=== PATIENT | male | born 1955 | race Caucasian/White ===

== ENCOUNTER 2020-03-20 09:20 | Inpatient (IN) ==
--- OUTSIDE RECORDS SUMMARY | 2020-03-20 09:22 | External Medical Summary | Continuity of Care Document ---
:1955 Author Name Jabier Martino Address Unavailable Unavailable , Care Team Providers Name Role Phone Jerod Herrera PA-C Unavailable [email or web address] [email or web address]CH[place], R Unavailable Unavailable Unavailable Unavailable Unavailable Problems Left ventricular hypertrophy (429.3) (I51.7) Depression (311) (F32.9) Epistaxis (784.7) (R04.0) Chest pain (786.50) (R07.9) Shortness of breath (786.05) (R06.02) Hyperlipidemia (272.4) (E78.5) Hypertensive heart disease (402.90) (I11.9) Hypertension (401.9) (I10) Allergies and Adverse Reactions No Known Drug Allergies (Allergy) Medications Lisinopril 40 MG Oral Tablet; TAKE ONE TABLET BY MOUTH ONCE DAILY DO Reinaldo Bill Start: 30-Nov-2014 Quantity: 90 Refills: 1 Aspirin 81 MG TABS; TAKE 1 TABLET DAILY. Refills: 0 Fish Oil 300 MG CAPS; TAKE 1 CAPSULE Daily Refills: 0 Atorvastatin Calcium 40 MG Oral Tablet; Take one table t once daily DO Reinaldo Bill Start: 11-Jul-2013 Quantity: 90 Refills: 1 Carvedilol 12.5 MG Oral Tablet; TAKE ONE TABLET BY SHAAN TH TWICE DAILY DO Reinaldo Bill Start: 30-Nov-2014 Quantity: 180 Refills: 1 hydroCHLOROthiazide 25 MG Oral Tablet; TAKE 1 TABLET D AILY. DO Reinaldo Bill Start: 12-Apr-2015 Quantity: 90 Refills: 3 Klor-Con M20 20 MEQ Oral Tablet Extended Release; TAKE 1 TABLET DAILY. NELLY Herrera Quantity: 90 Refills: 3 Procedures Procedures not documented Immunizations Immunizations not documented Family History Father Family history of Acute Myocardial Infarction (V17.3) Status : Active Social History - Smoking Status Never smoked tobacco Plan of Treatment Planned Observations Planned Goals not documented Results No Known Results Results not documented
--- OUTSIDE RECORDS SUMMARY | 2020-03-20 09:22 | External Medical Summary | Continuity of Care Document ---
:1955 Author Name Jabier Martino Address Unavailable Unavailable , Care Team Providers Name Role Phone Jerod Herrera PA-C Unavailable [email or web address] [place] Unavailable Unavailable Unavailable Unavailable Unavailable Problems Hypertension (401.9) (I10) Depression (311) (F32.9) Left ventricular hypertrophy (429.3) (I51.7) Hypertensive heart disease (402.90) (I11.9) Hyperlipidemia (272.4) (E78.5) Shortness of breath (786.05) (R06.02) Chest pain (786.50) (R07.9) Epistaxis (784.7) (R04.0) Allergies and Adverse Reactions No Known Drug Allergies (Allergy) Medications Lisinopril 40 MG Oral Tablet; TAKE ONE TABLET BY MOUTH ONCE DAILY DO Reinaldo Bill Start: 30-Nov-2014 Quantity: 90 Refills: 1 Aspirin 81 MG TABS; TAKE 1 TABLET DAILY. Refills: 0 Fish Oil 300 MG CAPS; TAKE 1 CAPSULE Daily Refills: 0 Klor-Con M20 20 MEQ Oral Tablet Extended Release; TAKE 1 TABLET DAILY. NELLY Herrera Quantity: 90 Refills: 3 hydroCHLOROthiazide 25 MG Oral Tablet; TAKE 1 TABLET D AILY. DO Reinaldo Bill Start: 12-Apr-2015 Quantity: 90 Refills: 3 Carvedilol 12.5 MG Oral Tablet; TAKE ONE TABLET BY SHAAN TH TWICE DAILY DO Reinaldo Bill Start: 30-Nov-2014 Quantity: 180 Refills: 1 Atorvastatin Calcium 40 MG Oral Tablet; Take one table t once daily DO Reinaldo Bill Start: 11-Jul-2013 Quantity: 90 Refills: 1 Procedures Procedures not documented Immunizations Immunizations not documented Family History Father Family history of Acute Myocardial Infarction (V17.3) Status : Active Social History - Smoking Status Never smoked tobacco Plan of Treatment Planned Observations Planned Goals not documented Results No Known Results Results not documented
[2020-03-20] MEDS ORDERED: ALBUTEROL HFA 8 GM INHALER INH ONE (09:55)
[2020-03-20] MEDS ORDERED: DEXAMETHASONE **PF** INJ 10 MG/ML VIAL IV ONE (09:55)
[2020-03-20] MEDS ORDERED: guaiFENesin 600 MG TABCR PO STA (09:55)
--- NOTE | 2020-03-20 10:06 | Emergency Department Note ---
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 The patient reports associated generalized weakness but denies any fevers, chills, nausea, vomiting, diarrhea. He reports he has been without insurance for the past year and has not been taking his blood pressure medicine but cannot remember the names. The patient does report his symptoms do become worse with exertion where he feels increased shortness of breath and chest tightness. This happened today when he was at work just prior to arrival. He does not have any active chest pain at this time. On arrival the patient is in no acute distress, afebrile with elevated blood pressure of 210/100s and vital signs otherwise stable. Eventually developed mild hypoxia with O2 saturation 88% on RA. On exam he has a scant intermittent wheeze but is otherwise clear. EKG demonstrates LVH with repolarization abnormality with lateral T wave inversions that are new compared to 2013. There is no overt ST elevation or depression. WBC, H/H and platelets within normal limits. Chemistry without acidosis. Bilirubin 1.9, nonspecific. Otherwise, electrolytes and LFTs unremarkable. Troponin 0.017 within normal limits. BNP slightly elevated at 1300 prior for comparison. 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 For this, the patient was given guaifenesin as well as dose of dexamethasone and albuterol inhaler. However, suspect the patient's symptoms can largely be attributed to his uncontrolled hypertension since he has been off his medications. However the patient's report of exertional chest tightness and shortness of breath raises suspicion for possible underlying unstable angina. Reasonable as, reasonable to admit the patient for further cardiac evaluation and blood pressure control. He is agreeable with this plan. Case discussed with ADOLFO Tracy PAC, with ADOLFO Villa hospitalist. The patient was given additional dose of hydralazine to help with blood pressure control in addition to Lasix given his elevated BNP and evidence of venous congestion on chest x-ray. Triage Nursing notes reviewed and agree them. Prior medical records reviewed Vital Signs: reviewed and remarkable for hypertension. Differential diagnosis: Reactive airway disease, pneumonia, pneumothorax, COPD, CHF, infections, cardiac ischemia, pulmonary embolism, musculoskeletal, gastrointestinal, as well as other pathologies. ER treatment provided: See below. Diagnostics interpreted by me: ECG: Normal sinus rhythm, 69 bpm, LVH with repolarization abnormality no ectopy, no overt ST elevation or depression, T wave inversion in lateral lead is new compared to June 19, 2013. Cardiac Monitoring: An order for continuous cardiac monitoring was placed and demonstrated sinus rhythm, 69 bpm, no ectopy. Laboratory studies: See below Imaging studies: XR chest 1V portable CLINICAL HISTORY: 64 years-old Male presenting with Chest Pain. TECHNIQUE: Portable upright AP view of the chest was obtained. COMPARISON: 06/19/2013. FINDINGS: Cardiac silhouette moderately enlarged. Mild pulmonary vascular prominence. No focal opacity. No large effusion or pneumothorax. Degenerative changes of the thoracic spine. IMPRESSION: 1. Cardiomegaly with mild volume overload. No advanced congestive change. ACT 112: Negative or not required by law. Consultation(s): ADOLFO Tracy PAC, with ADOL[facility] hospitalist. 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 The patient reports associated generalized weakness but denies any fevers, chills, nausea, vomiting, diarrhea. He reports he has been without insurance for the past year and has not been taking his blood pressure medicine but cannot remember the names. The patient does report his symptoms do become worse with exertion where he feels increased shortness of breath and chest tightness. This happened today when he was at work just prior to arrival. He does not have any active chest pain at this time. ROS: See above HPI for pertinent positives & negatives. A total of 10 systems reviewed and were otherwise negative. PAST MEDICAL HISTORY:See Below PAST SURGICAL HISTORY:See Below FAMILY HISTORY:See Below SOCIAL HISTORY:See Below HOME MEDICATIONS:See Below ALLERGIES:See Below VITALS:See Below PHYSICAL EXAMINATION: GENERAL: Awake, alert, well-appearing, in no distress HENT: Normocephalic, atraumatic. Oropharynx with dry mucous membranes and otherwise unremarkable. EYES: Normal conjunctiva. Sclera non-icteric. NECK: Supple. No nuchal rigidity. FROM. No JVD. RESPIRATORY: Scant intermittent wheeze otherwise clear to auscultation. CARDIAC: Regular rate, normal rhythm. Extremities warm and well perfused. Pulses equal. ABDOMEN: Soft, non-distended. No tenderness to palpation. No rebound or guarding. No masses. RECTAL: Deferred. MUSCULOSKELETAL: Chest examination reveals no tenderness. The back is symmetrical on inspection without obvious abnormality. There is no CVA tenderness to palpation. No joint edema. LOWER EXTREMITIES: Calves are equal size bilaterally and non-tender. No edema. No discoloration. NEURO: Normal sensorium. No sensory or motor deficits noted. SKIN: No rash or jaundice noted. Kenneth Padgett MD Past Med/Surg History Medical History Hypertension Social History Preferred Language: Romansh Communication Ability: Effective Counter Intelligence Agent Required: No Beliefs That Will Affect Care: Yazidi Yazidi Beliefs: Adventism Current Living Situation: Spouse Other Information That Helps Us Care for You: No Feels Safe at Home: Yes Safety Concerns: Feels Safe At This Time Smoking Status: Never smoker Hx Alcohol Use: Yes Hx Substance Use: No Allergies Allergies Allergy/AdvReac Type Severity Reaction Status Date / Time No Known Allergies Allergy Mild Unverified 06/19/13 12:32 Home Meds Home Medications Medication Instructions Recorded Confirmed atenolol 0 mg PO DAILY #0 tab 06/19/13 03/20/20 lisinopril 10 mg PO DAILY #0 tab 06/19/13 03/20/20 naproxen sodium [Aleve] 440 mg PO Q12H PRN 03/20/20 03/20/20 Results & Data (ED) Vital Signs Vital Signs - 24 hr 03/20/20 09:20 03/20/20 09:24 03/20/20 10:29 Temperature 36.8 C Temperature Source Oral Pulse Rate 69 Pulse Rate [Apical] Respiratory Rate 22 Blood Pressure 218/108 H Blood Pressure [Left Arm] Blood Pressure Mean 144 Blood Pressure Mean [Left Arm] Pulse Oximetry 98 98 98 Oxygen Delivery Method Room Air Room Air Room Air Oxygen Flow Rate Sepsis Recent Fever Within 48 Hours No Sepsis New/Unexplained Change in Mental Status No Sepsis Action Taken by Nursing No Action Required Oxygen Flow Rate - Titration Pulse Oximetry Post Tiitration 03/20/20 11:20 03/20/20 12:28 03/20/20 13:00 Temperature Temperature Source Pulse Rate Pulse Rate [Apical] 64 68 Respiratory Rate 18 18 Blood Pressure Blood Pressure [Left Arm] 224/146 H Blood Pressure Mean Blood Pressure Mean [Left Arm] 172 Pulse Oximetry 98 88 L 98 Oxygen Delivery Method Room Air Room Air Nasal Cannula Nasal Cannula Oxygen Flow Rate 0 2 Sepsis Recent Fever Within 48 Hours Sepsis New/Unexplained Change in Mental Status Sepsis Action Taken by Nursing Oxygen Flow Rate - Titration 2 Pulse Oximetry Post Tiitration 95 03/20/20 14:44 Temperature Temperature Source Pulse Rate Pulse Rate [Apical] Respiratory Rate Blood Pressure Blood Pressure [Left Arm] 197/106 H Blood Pressure Mean Blood Pressure Mean [Left Arm] 136 Pulse Oximetry Oxygen Delivery Method Oxygen Flow Rate Sepsis Recent Fever Within 48 Hours Sepsis New/Unexplained Change in Mental Status Sepsis Action Taken by Nursing Oxygen Flow Rate - Titration Pulse Oximetry Post Tiitration Laboratory Data Attestation: I reviewed the patient's lab results. Result diagrams: 03/20/20 10:25 03/20/20 10:25 Lab Results 03/20/20 03/20/20 03/20/20 Range/Units 10:13 10:13 10:25 WBC 8.69 (4.8-10.8) K/uL RBC 5.11 (4.7-6.1) M/uL Hgb 15.4 (14.0-18.0) g/dL Hct 43.9 (42-52) % MCV 85.9 (80-100) fL MCH 30.1 (25-34) pg MCHC 35.1 (32-36) g/dL RDW Std Deviation 43.2 (36.4-46.3) fL RDW Coeff of Elen 14.0 (11.5-14.5) % Plt Count 171 (130-400) K/uL MPV 10.2 (7.4-10.4) fL Immature Gran % (Auto) 0.2 % Neut % (Auto) 71.2 % Lymph % (Auto) 19.3 % Borden % (Auto) 6.1 % Eos % (Auto) 2.5 % Baso % (Auto) 0.7 % Immature Gran # (Auto) 0.02 (0.00-0.02) K/uL Neut # (Auto) 6.18 (1.4-6.5) K/uL Lymph # (Auto) 1.68 (1.2-3.4) K/uL Borden # (Auto) 0.53 (0.11-0.59) K/uL Eos # (Auto) 0.22 (0-0.5) K/uL Baso # (Auto) 0.06 (0-0.2) K/uL PT (9.0-12.0) Seconds INR (0.9-1.1) APTT (21.0-31.0) Seconds PTT Ratio Sodium (136-145) mmol/L Potassium (3.5-5.1) mmol/L Chloride (98-107) mmol/L Carbon Dioxide (21-32) mmol/L Anion Gap (3-11) BUN (7-18) mg/dl Creatinine (0.6-1.4) mg/dl Est Cr Clr Drug Dosing ml/min Est GFR ( Amer) Est GFR (Non-Af Amer) BUN/Creatinine Ratio (10-20) Glucose (70-99) mg/dl Calcium (8.5-10.1) mg/dl Phosphorus (2.5-4.9) mg/dl Magnesium (1.8-2.4) mg/dl Total Bilirubin (0.2-1) mg/dl AST (15-37) U/L ALT (12-78) U/L Alkaline Phosphatase (45-117) U/L Troponin I (0-0.045) ng/ml NT-Pro-B Natriuret Pep (0-900) pg/ml Total Protein (6.4-8.2) gm/dl Albumin (3.4-5.0) gm/dl Globulin (2.5-4.0) gm/dl Albumin/Globulin Ratio (0.9-2) Lipase (73-393) U/L TSH (0.300-4.500) uIu/ml Influenza Type A (PCR) Neg for Influ A (Neg) Influenza Type B (PCR) Neg for Influ B (Neg) SARS-CoV-2 RNA (RT-PCR) Cancelled 03/20/20 03/20/20 Range/Units 10:25 10:25 WBC (4.8-10.8) K/uL RBC (4.7-6.1) M/uL Hgb (14.0-18.0) g/dL Hct (42-52) % MCV (80-100) fL MCH (25-34) pg MCHC (32-36) g/dL RDW Std Deviation (36.4-46.3) fL RDW Coeff of Elen (11.5-14.5) % Plt Count (130-400) K/uL MPV (7.4-10.4) fL Immature Gran % (Auto) % Neut % (Auto) % Lymph % (Auto) % Borden % (Auto) % Eos % (Auto) % Baso % (Auto) % Immature Gran # (Auto) (0.00-0.02) K/uL Neut # (Auto) (1.4-6.5) K/uL Lymph # (Auto) (1.2-3.4) K/uL Borden # (Auto) (0.11-0.59) K/uL Eos # (Auto) (0-0.5) K/uL Baso # (Auto) (0-0.2) K/uL PT 11.8 (9.0-12.0) Seconds INR 1.1 (0.9-1.1) APTT 28.9 (21.0-31.0) Seconds PTT Ratio 1.0 Sodium 143 (136-145) mmol/L Potassium 3.6 (3.5-5.1) mmol/L Chloride 112 H (98-107) mmol/L Carbon Dioxide 25 (21-32) mmol/L Anion Gap 6.0 (3-11) BUN 21 H (7-18) mg/dl Creatinine 1.23 (0.6-1.4) mg/dl Est Cr Clr Drug Dosing 75.7 ml/min Est GFR ( Amer) 72.0 Est GFR (Non-Af Amer) 62.1 BUN/Creatinine Ratio 17.3 (10-20) Glucose 102 H (70-99) mg/dl Calcium 8.2 L (8.5-10.1) mg/dl Phosphorus 2.7 (2.5-4.9) mg/dl Magnesium 2.1 (1.8-2.4) mg/dl Total Bilirubin 1.9 H (0.2-1) mg/dl AST 16 (15-37) U/L ALT 42 (12-78) U/L Alkaline Phosphatase 81 (45-117) U/L Troponin I 0.017 (0-0.045) ng/ml NT-Pro-B Natriuret Pep 1314 H (0-900) pg/ml Total Protein 7.9 (6.4-8.2) gm/dl Albumin 4.1 (3.4-5.0) gm/dl Globulin 3.8 (2.5-4.0) gm/dl Albumin/Globulin Ratio 1.1 (0.9-2) Lipase 83 (73-393) U/L TSH 2.100 (0.300-4.500) uIu/ml Influenza Type A (PCR) (Neg) Influenza Type B (PCR) (Neg) SARS-CoV-2 RNA (RT-PCR) Administered Medications Hydralazine HCl (Hydralazine Hcl) 10 mg IV Q6H PRN PRN Reason: Hypertension Stop: 04/19/20 21:02 Last Admin: 03/20/20 22:04 Dose: 10 mg Documented by: [id number] Metoprolol Tartrate (Lopressor) 25 mg PO BID@0800,1999 [facility] Stop: 04/19/20 19:59 Last Admin: 03/20/20 17:35 Dose: 25 mg Documented by: [id number] Nitroglycerin (Nitro-Bid 2%) 1 inch EXT Q6 [facility] Stop: 04/19/20 16:59 Last Admin: 03/20/20 17:39 Dose: 1 inch Documented by: [id number] Discontinued Medications Albuterol (Ventolin Hfa) 2 puffs INH NOW ONE Stop: 03/20/20 09:56 Last Admin: 03/20/20 10:23 Dose: 2 puffs Documented by: [id number] Aspirin (Aspirin) 324 mg PO NOW STA Stop: 03/20/20 14:18 Last Admin: 03/20/20 14:42 Dose: 324 mg Documented by: [id number] Dexamethasone Sodium Phosphate (Decadron Pf) 10 mg IV NOW ONE Stop: 03/20/20 09:56 Last Admin: 03/20/20 10:23 Dose: 10 mg Documented by: [id number] Furosemide (Lasix) 20 mg IV NOW STA Stop: 03/20/20 12:38 Last Admin: 03/20/20 13:08 Dose: 20 mg Documented by: [id number] Furosemide (Lasix) 20 mg IV NOW STA Stop: 03/20/20 15:48 Last Admin: 03/20/20 17:34 Dose: 20 mg Documented by: [id number] Guaifenesin (Mucinex) 600 mg PO NOW STA Stop: 03/20/20 09:56 Last Admin: 03/20/20 10:23 Dose: 600 mg Documented by: [id number] Hydralazine HCl (Apresoline) 10 mg PO NOW STA Stop: 03/20/20 14:33 Last Admin: 03/20/20 14:42 Dose: 10 mg Documented by: [id number] Blood Pressure Blood Pressure Findings: Elevated blood pressure Blood Pressure Disposition: further management by hospitalist Discharge Plan Visit Data *Final* Discharge Date/Time: 03/20/20 15:35 Chief Complaint: Shortness of Breath/Dyspnea Stated Complaint: SOB ED Provider: Kenneth Padgett Discharge Problem: Hypertensive urgency, Shortness of breath, Chest congestion, Pulmonary venous congestion, MANDEL (dyspnea on exertion) Patient Disposition: Admitted As Inpatient Discharge Instructions Interventions: ED Discharge Assessment Last Done: 03/20/20 15:35
--- NOTE | 2020-03-20 10:30 | XRay Report ---
XR chest 1V portable CLINICAL HISTORY: 64 years-old Male presenting with Chest Pain. TECHNIQUE: Portable upright AP view of the chest was obtained. COMPARISON: 06/19/2013. FINDINGS: Cardiac silhouette moderately enlarged. Mild pulmonary vascular prominence. No focal opacity. No larg e effusion or pneumothorax. Degenerative changes of the thoracic spine. IMPRESSION: 1. Cardiomegaly with mild volume overload. No advanced congestive change. ACT 112: Negative or not required by law. Electronically signed by: Manolo Marshall M.D. 03/20/2020 10:29 AM
[2020-03-20 10:41] LABS: Basophils # (auto) 0.06 K/uL (0-0.2); Basophils % (auto) 0.7 %; Eosinophils # (auto) 0.22 K/uL (0-0.5); Eosinophils % (auto) 2.5 %; Hematocrit (blood only) 43.9 % (42-52); Hemoglobin 15.4 g/dL (14.0-18.0); Immature Granulocytes # (auto) 0.02 K/uL (0.00-0.02); Immature Granulocytes % (auto) 0.2 %; Lymphocytes # (auto) 1.68 K/uL (1.2-3.4); Lymphocytes % (auto) 19.3 %; Mean Corpuscular Hemoglobin 30.1 pg (25-34); Mean Corpuscular Hgb Conc 35.1 g/dL (32-36); Mean Corpuscular Volume 85.9 fL (80-100); Mean Platelet Volume 10.2 fL (7.4-10.4); Monocytes # (auto) 0.53 K/uL (0.11-0.59); Monocytes % (auto) 6.1 %; Neutrophils # (auto) 6.18 K/uL (1.4-6.5); Neutrophils % (auto) 71.2 %; Platelet Count 171 K/uL (130-400); RDW Standard Deviation 43.2 fL (36.4-46.3); Red Blood Count 5.11 M/uL (4.7-6.1); White Blood Count 8.69 K/uL (4.8-10.8)
[2020-03-20 10:56] LABS: Albumin Level 4.1 gm/dl (3.4-5.0); BUN Creatinine Ratio 17.3 (10-20); Calcium 8.2 mg/dl (8.5-10.1); Creatinine Clr Calc Pharmacy 75.7 ml/min; Est GFR (Non-African American) 62.1; Magnesium 2.1 mg/dl (1.8-2.4); Potassium 3.6 mmol/L (3.5-5.1)
[2020-03-20 11:00] LABS: INR 1.1 (0.9-1.1); Partial Thromboplastin Time 28.9 Seconds (21.0-31.0); Prothrombin Time 11.8 Seconds (9.0-12.0)
[2020-03-20 11:16] LABS: Albumin Globulin Ratio 1.1 (0.9-2); Bilirubin,Total 1.9 mg/dl (0.2-1); Globulin 3.8 gm/dl (2.5-4.0); Phosphorus 2.7 mg/dl (2.5-4.9); Thyroid Stimulating Hormone 2.1 uIu/ml (0.300-4.500); Total Protein 7.9 gm/dl (6.4-8.2); Troponin I 0.017 ng/ml (0-0.045)
[2020-03-20 11:34] LABS: Influenza A virus by PCR Neg for Influ A (Neg); Influenza B virus by PCR Neg for Influ B (Neg)
[2020-03-20] MEDS ORDERED: FUROSEMIDE 40 MG/4 ML VIAL IV STA ×2 (12:37→15:47)
[2020-03-20] MEDS ORDERED: ASPIRIN CHEW 324 MG PO STA (14:17)
--- NOTE | 2020-03-20 14:33 | History & Physical Report ---
Date of Service March 20, 2020 Assessment & Plan (1) Hypertensive urgency: - Admit to tele - Trend cardiac biomarkers, initial set was negative - EKG reviewed as above - Check 2 D echo -NT-Pro-BNP = 1314 -Consider cardiology consult, will monitor blood pressure overnight and wait for reading of echo -Patient used to follow with Reinaldo Bill with cardiology here, has been out of insurance for 1.5 years, pt thinks he was previously on carvedilol 12.5 mg BID and unknown dose of Lisinopril --with only moderately controlled blood pressure at best. -Was administered 1 oral dose of hydralazine in the ER with improvement of BP to 194/104 while at bedside. - Start metoprolol 25 mg BID and titrate - PT/OT consulted (2) Hypertension: -As above we will order as needed medication (3) Shortness of breath: -Administered 1 dose of Lasix 20 mg IV in the ER, repeat Lasix 20 mg IV now - consider additional dose based on outs. Monitor daily BMP. 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 Continue airborne precautions/isolation pending results. (4) Pulmonary edema: -As above (5) Obesity (BMI 30-39.9): -BMI of 36.3 -Diet and exercise to be encouraged upon discharge, would encourage low-sodium diet (6) DVT prophylaxis: - teds CODE: Full code Dispo: From home, likely to remain in the hospital x 1-2 days History of Present Illness Primary Care Provider: NO PCP This is a 64 yo M with PMHx of uncontrolled HTN, obesity with BMI or 36.3, hx of chronic back pain and depression who presents with increased shortness of breath and chest pain which has been ongoing for about 1 week. He reports it has been progressively getting work as the week has gone by. 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 This morning his told him that he needed to retire because this work was way too strenuous for him compared to what it used to be. In light of COVID-19 he has been handling many more packages than he typically has in the past. He denies any fevers, sweats or chills, and only feels short of breath on exertion. At times when he goes to bed and tries to lay down he feels more short of breath as well. He does not typically wear any O2 at baseline, but does have a nebulizer at home that he has used albuterol in 4 times per day for the last week, with some minimal improvement in his symptoms. Allergies Allergy/AdvReac Type Severity Reaction Status Date / Time No Known Allergies Allergy Mild Unverified 06/19/13 12:32 Home Medications Home Medications Medication Instructions Recorded Confirmed Type atenolol 0 mg PO DAILY #0 tab 06/19/13 03/20/20 History lisinopril 10 mg PO DAILY #0 tab 06/19/13 03/20/20 History naproxen sodium [Aleve] 440 mg PO Q12H PRN 03/20/20 03/20/20 History aspirin 81 mg PO DAILY #90 tab 03/21/20 Rx lisinopril [Zestril] 5 mg PO QAM #30 tab 03/21/20 Rx metoprolol tartrate 25 mg PO BID@0800,1999 #60 tab 03/21/20 Rx Past Med/Surg History Medical History Hypertension Social History Preferred Language: Georgian Communication Ability: Effective Barrel Liner Required: No Beliefs That Will Affect Care: Latter-Day Latter-Day Beliefs: Sikh Current Living Situation: Spouse Other Information That Helps Us Care for You: No Feels Safe at Home: Yes Safety Concerns: Feels Safe At This Time Smoking Status: Never smoker Hx Alcohol Use: Yes Hx Substance Use: No Review of Systems Review of Systems: Constitutional: No fever, sweats or chills Eyes: No diplopia, no worsening or blurred vision ENT: normal hearing, no trouble swallowing Respiratory: No cough, sputum, + dyspnea on exertion Cardiovascular: + substernal chest pain on exertion, no palpitations Abdomen: No pain, nausea, vomiting, diarrhea or constipation Musculoskeletal: No joint pain, calf pain, swelling Neurologic: No weakness, numbness/tingling, or balance problems Psychiatric: No anxiety or depression Skin: No rash or itch Physical Exam Physical Exam: General: awake, alert, no apparent distress Head: Normocephalic, atraumatic ENT: PERRL, EOMI, no pharyngeal exudate, mucous membranes moist Chest: Clear to auscultation, on 2L via NC, diminished at bases, no adventitious breath sounds Cardiac: Regular rate and rhythm, no murmur, no JVD, normal peripheral pulses, good capillary refill Abdominal: NABS x 4 quadrants, soft, + mildly distended, nontender to palpation, no rebound, guarding or tenderness Extremities: Normal inspection, no peripheral edema or erythema, calfs nontender to palpation Psych: Normal mood and affect Neuro: AAO x 3, strength intact bilaterally and related 5/5, no motor deficits, speech is clear, no peripheral sensory deficits Results & Data Results & Data ([facility]) Vital Signs (Past 12 Hours) Vital Signs Temp Pulse Pulse Resp BP BP Pulse Ox 03/20/20 13:00 68 18 224/146 H 98 03/20/20 12:28 88 L 03/20/20 11:20 64 18 98 03/20/20 10:29 98 03/20/20 09:24 36.8 C 69 22 218/108 H 98 03/20/20 09:20 98 Diagnostic Findings XR chest 1V portable CLINICAL HISTORY: 64 years-old Male presenting with Chest Pain. TECHNIQUE: Portable upright AP view of the chest was obtained. COMPARISON: 06/19/2013. FINDINGS: Cardiac silhouette moderately enlarged. Mild pulmonary vascular prominence. No focal opacity. No large effusion or pneumothorax. Degenerative changes of the thoracic spine. IMPRESSION: 1. Cardiomegaly with mild volume overload. No advanced congestive change. ACT 112: Negative or not required by law. ECG Additional Comments: 20-MAR-2020 10:19:29 [facility]-EDSTAT ROUTINE RETRIEVAL Normal sinus rhythm Left ventricular hypertrophy with repolarization abnormality Abnormal ECG When compared with ECG of 19-JUN-2013 12:37, T wave inversion now evident in Lateral leads 25mm/s 10mm/mV 150Hz 9.0.9 12SL 241 SUDEEP: 16 Referred by: REFERRED SELF Unconfirmed Vent. rate 69 BPM KS interval 182 ms QRS duration 100 ms QT/QTc 430/460 ms P-R-T axes 6 -25 148 Code Status & VTE Plan Code Status Full Code -discussed with the patient at bedside Supervising Physician Co-Signing Physician Notes Patient was seen and examined independently I discussed the case with Shital johnson PA-C I reviewed pertinent past medical social family history and also the plan of care and agree with the plan of care. Any exceptions will be noted below 64-year-old male whose had increasing exertional symptoms including shortness of breath more frequently and also someone sitting on his chest when exerting himself physically In the emergency department he is found to have hypertensive urgency And signs of cardiomegaly on chest x-ray with LVH on EKG Initial evaluation Does Not include acute coronary syndrome but concern for unstable angina and heart failure unspecified type is warranted Vital signs show market elevated blood pressure 216/134 Cardiac exam is regular without murmurs clicks rubs or gallops Lungs are clear with good excursion Abdomen is protuberant without fluid wave Remedies without edema Likely unstable angina the patient has been without his antihypertensive medicines for some time versus hypertensive urgency Will evaluate the patient with serial troponins check an echocardiogram to evaluate for ejection fraction. If his ejection fraction is substantially reduced may consider stratification with cardiac catheterization. If his ejection fraction is retained we will discuss with cardiology whether we should pursue stress testing versus go to catheterization. PG Care Time/CCT Total # of Minutes Spent Total Time Spent with Patient: Total time spent is greater than 50% in coordinat ion of care (as documented) at patient's floor/unit and/or counseling patient: Coding Level of Care Code 59980 Initial Inpt Care Lvl 3 Diagnoses Hypertensive urgency I16.0 Hypertension I10 Shortness of breath R06.02 Pulmonary edema J81.1 Obesity (BMI 30-39.9) E66.9 DVT prophylaxis Z29.9
[2020-03-20] MEDS ORDERED: ONDANSETRON INJ 2 MG/ML 2 ML VIAL IV PRN (16:27)
[2020-03-20] MEDS ORDERED: ACETAMINOPHEN 325 MG TAB PO PRN (16:27)
[2020-03-20] MEDS ORDERED: ASPIRIN CHEW 324 MG PO ONE (16:27)
[2020-03-20] MEDS: METOPROLOL TARTRATE 25 MG TAB PO SCH (17:35)
[2020-03-20] MEDS: NITROGLYCERIN 2% OINTMENT 30GM TUBE EXT SCH ×2 (17:39→23:50)
[2020-03-20] MEDS ORDERED: METOPROLOL TARTRATE 25 MG TAB PO SCH (21:00)
[2020-03-20] MEDS ORDERED: HydrALAZINE HCL 20 MG/ML VIAL IV PRN (21:03)
--- NOTE | 2020-03-20 22:31 | Electrocardiogram Report ---
Test Reason : Blood Pressure : / mmHG Vent. Rate : 069 BPM Atrial Rate : 069 BPM P-R Int : 182 ms QRS Dur : 100 ms QT Int : 430 ms P-R-T Axes : 006 -25 148 degrees QTc Int : 460 ms Normal sinus rhythm Left ventricular hypertrophy with repolarization abnormality Abnormal ECG When compared with ECG of 19-JUN-2013 12:37, T wave inversion now evident in Lateral leads Confirmed by Ricki Jordan ([id number]) on 03/20/2020 10:31:16 PM Referred By: REFERRED SELF Confirmed By:Ricki Jordan
[2020-03-21 04:00] LABS: Hematocrit (blood only) 45.1 % (42-52); Hemoglobin 15.9 g/dL (14.0-18.0); Mean Corpuscular Hemoglobin 30.1 pg (25-34); Mean Corpuscular Hgb Conc 35.3 g/dL (32-36); Mean Corpuscular Volume 85.3 fL (80-100); Mean Platelet Volume 10.5 fL (7.4-10.4); Platelet Count 212 K/uL (130-400); RDW Coefficient of Variation 14.2 % (11.5-14.5); RDW Standard Deviation 43.3 fL (36.4-46.3); Red Blood Count 5.29 M/uL (4.7-6.1); White Blood Count 10.69 K/uL (4.8-10.8)
[2020-03-21 04:28] LABS: Albumin Level 3.9 gm/dl (3.4-5.0); BUN Creatinine Ratio 19.8 (10-20); Calcium 8.6 mg/dl (8.5-10.1); Creatinine Clr Calc Pharmacy 73.9 ml/min; Est GFR (African American) 69.9; Est GFR (Non-African American) 60.3; Potassium 3.8 mmol/L (3.5-5.1)
[2020-03-21 04:31] LABS: Globulin 3.8 gm/dl (2.5-4.0); Total Protein 7.7 gm/dl (6.4-8.2)
[2020-03-21] MEDS: NITROGLYCERIN 2% OINTMENT 30GM TUBE EXT SCH (05:54)
[2020-03-21] MEDS: METOPROLOL TARTRATE 25 MG TAB PO SCH (08:48)
[2020-03-21] MEDS ORDERED: lisinopriL 10 MG TAB PO SCH (09:00)
[2020-03-21] MEDS ORDERED: lisinopriL 5 MG TAB PO SCH (09:00)
[2020-03-21] MEDS ORDERED: ASPIRIN 81 MG ECTAB PO SCH (09:00)
--- NOTE | 2020-03-21 11:47 | Hospitalist Progress Note ---
Date of Service March 21, 2020 Assessment & Plan (1) Hypertensive urgency: - Admit to tele - Trend cardiac biomarkers, initial set was negative - EKG reviewed as above - Check 2 D echo -NT-Pro-BNP = 1314 -Consider cardiology consult, will monitor blood pressure overnight and wait for reading of echo -Patient used to follow with Reinaldo Bill with cardiology here, has been out of insurance for 1.5 years, pt thinks he was previously on carvedilol 12.5 mg BID and unknown dose of Lisinopril --with only moderately controlled blood pressure at best. -Was administered 1 oral dose of hydralazine in the ER with improvement of BP to 194/104 while at bedside. - Start metoprolol 25 mg BID and titrate - PT/OT consulted (2) Hypertension: -As above we will order as needed medication (3) Shortness of breath: -Administered 1 dose of Lasix 20 mg IV in the ER, repeat Lasix 20 mg IV now - consider additional dose based on outs. Monitor daily BMP. 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 Continue airborne precautions/isolation pending results. (4) Pulmonary edema: -As above (5) Obesity (BMI 30-39.9): -BMI of 36.3 -Diet and exercise to be encouraged upon discharge, would encourage low-sodium diet (6) DVT prophylaxis: - teds CODE: Full code Dispo: From home, likely to remain in the hospital x 1-2 days Admission and Anticipated Discharge Date Admission Date: March 20, 2020 Results & Data Results & Data ([facility]) Vital Signs (Past 12 Hours) Vital Signs Temp Pulse Pulse Pulse Resp BP BP 03/21/20 11:01 98.1 F 66 16 160/87 H 03/21/20 08:00 68 03/21/20 06:57 98.1 F 66 18 164/85 H 03/21/20 03:59 98.2 F 69 18 149/65 H 03/21/20 00:00 98.4 F 74 18 156/82 H Pulse Ox 03/21/20 11:01 96 03/21/20 08:00 03/21/20 06:57 96 03/21/20 03:59 96 03/21/20 00:00 97 PG Care Time/CCT Total # of Minutes Spent Total Time Spent with Patient: Total time spent is greater than 50% in coordination of care (as documented) at patient's floor/unit and/or counseling patient: Coding Diagnoses Hypertensive urgency I16.0 Hypertension I10 Shortness of breath R06.02 Pulmonary edema J81.1 Obesity (BMI 30-39.9) E66.9 DVT prophylaxis Z29.9
--- NOTE | 2020-03-21 11:50 | Discharge Summary ---
Date of Service March 21, 2020 Admission HPI Per Admitting Provider This is a 64 yo M with PMHx of uncontrolled HTN, obesity with BMI or 36.3, hx of chronic back pain and depression who presents with increased shortness of breath and chest pain which has been ongoing for about 1 week. He reports it has been progressively getting work as the week has gone by. 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 This morning his told him that he needed to retire because this work was way too strenuous for him compared to what it used to be. In light of COVID-19 he has been handling many more packages than he typically has in the past. He denies any fevers, sweats or chills, and only feels short of breath on exertion. At times when he goes to bed and tries to lay down he feels more short of breath as well. He does not typically wear any O2 at baseline, but does have a nebulizer at home that he has used albuterol in 4 times per day for the last week, with some minimal improvement in his symptoms. Principal Diagnosis Hypertensive urgency Discharge Exam The patient appeared well Vital signs as documented. Lungs are clear to auscultation and appear unlabored Cardiac exam, Rhythm is regular.. No murmurs, rubs or gallops. Abdominal exam reveals normal bowel sounds, soft non tender, no masses Extremities are nonedematous and both pedal pulses are normal. 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 Despite not having insurance he is agreeable to get medications we did look up and [facility] and they will be prescribed to the local [facility] Patient ruled out for CA by serial troponins and echocardiogram as communicated to me by Dr. Jordan looks to be in good condition with normal ejection fraction and no significant regional wall motion abnormalities Patient be scheduled for an outpatient stress test Patient was instructed on signs and symptoms to return if things are worse will be on metoprolol and lisinopril at this time he was instructed on a low-salt diet (2) Hypertension: -As above we will order new prescriptions to be used as an outpatient (3) Shortness of breath: This is resolved will get a stress test as an outpatient -In-house COVID-19 testing negative. (4) Obesity (BMI 30-39.9): -BMI of 36.3 -Diet and exercise to be encouraged upon discharge, would encourage low-sodium diet Total Time Total Time Spent Total Time Spent (In Minutes): It required greater than 30 minutes to prepare this patient for discharge, this included discussion with cardiology and 2 visits with patient Discharge Plan Discharge Items Patient Disposition: Home - Self-Care Reason For Visit: HYPERTENSIVE URGENCY, CP, SOB Discharge Diagnosis: hypertensive urgency shortness of breath Activity: Resume your previous activity Non-emergency contact: Primary Care Provider and Mathematics Department Chair Call non-emergency contact if: you have any medication questions and your symptoms worsen Follow-up/Referrals: PCP,NO [Primary Care Provider] - Diet: Low Sodium (2gm) Addtl Attending Provider Instructions: please do not exert youself outside of typical work always return if you have re occurence of your symptoms out of proportion Pending Studies at Discharge: No Stand-Alone Forms: My Glow, Smoking Cessation Medications and DC Order Prescriptions: New aspirin 81 mg Tablet,Delayed Release (Dr/Ec) 81 mg PO DAILY Qty: 90 RF: 5 lisinopril [Zestril] 5 mg Tablet 5 mg PO QAM Qty: 30 RF: 5 metoprolol tartrate 25 mg Tablet 25 mg PO BID@0800,2000 Qty: 60 RF: 5 Discontinued lisinopril 10 mg Tablet 10 mg PO DAILY Qty: 0 RF: 0 atenolol 50 mg Tablet 0 mg PO DAILY Qty: 0 RF: 0 naproxen sodium [Aleve] 220 mg Tablet 440 mg PO Q12H PRN (Reason: Pain) RF: 0 Discharge Orders: Discharge Order (Routine); Ordered 03/21/20 Ordered By: Trell Suresh/Other Patient Handouts: Low-Salt Choices Admission Data Admit Date/Time: 03/20/20 14:50 Attending Provider: Trell Ann Admit Provider: Trell Ann Primary Care Provider: PCP,NO Other Providers: María Donnelly Coding Level of Care Code D/C Day Management >30 mins Diagnoses Hypertensive urgency I16.0 Hypertension I10 Shortness of breath R06.02 Obesity (BMI 30-39.9) E66.9
--- NOTE | 2020-03-21 17:03 | XCELERA ---
[id number]
[2020-03-22 05:50] LABS: Estimated Average Glucose 97 mg/dl
--- NOTE | 2020-03-25 12:40 | Coding Query ---
CODING QUERY To promote full compliance with coding requirements relating to patient care, provider participation is requested in all cases of filenet admin uncertainty. Please assist us with the question(s) below: Coding Question(s): The H&P documents Pulmonary Edema and administration of one dose of IV Lasix. Please specify below, in your clinical opinion, regarding Pulmonary Edema. ( ) Acute Pulmonary Edema ( ) Chronic Pulmonary Edema ( ) Pulmonary Edema is ruled-out (xxx ) Other: Please Specify non specific cxr changes, treated with lasix Physician's Response(s): Thank you Maeve Phoenix Principal Diagnosis: "that condition established after study, to be chiefly responsible for occasioning the admission of the patient to the hospital for care." Co-Existing Principal Diagnosis: "when two or more diagnoses equally meet the criteria for principal diagnosis as determined by the circumstances of admission, diagnostic work up, and/or therapy provided, and the Alphabetic Index, Tabular List, or another coding guideline does not provide sequencing direction, any one of the diagnoses may be sequenced first." "When the physician has documented what appears to be a current diagnosis in the body of the record, but has not included the diagnosis in the final diagnostic statement, the physician should be asked whether the diagnosis should be added." (Source Coding [facility] 2 QTR90. p3-4) DELMI
--- NOTE | 2020-03-25 12:42 | Coding Query ---
To promote full compliance with coding requirements relating to patient care, provider participation is requested in all cases of autocad designer uncertainty. Please assist us with the question(s) below: Coding Question(s): The diagnosis(es) below was documented in the H&P, then subsequently fell off all further documentation. Please indicate if it is still a possible diagnosis or ruled out. Physician's Response(s): UNSTABLE ANGINA ( ) Diagnosed and POA ( ) Diagnosed and not POA ( xxx ) Ruled out ( ) Other (please specify) MTDD
== END 2020-03-21 14:00 | disposition home or self-care (01) | DRG 305 ==
LOC: ED 09:20 → 2S 14:50